=== PATIENT | male | born 1945 | race Caucasian/White ===

== ENCOUNTER → 2020-07-23 | Emergency (ER) | payer OTHER ==
[~2020-07-23] VITALS: Ht 167.6 cm; Wt 65.8 kg
== END | disposition left against medical advice (07) ==
LOC: ER 15:57
DX: N40.1 Benign prostatic hyperplasia with lower urinary tract symptoms (principal); R33.8 Other retention of urine; D47.3 Essential (hemorrhagic) thrombocythemia; N41.0 Acute prostatitis; Z03.818 Encounter for observation for suspected exposure to other biological agents ruled out

== ENCOUNTER 2020-08-03 07:39 | Emergency (ER) | payer OTHER ==
[~2020-08-03] VITALS: Ht 177.8 cm; Wt 65.8 kg
== END 2020-08-03 14:05 | disposition left against medical advice (07) ==
LOC: ER 07:39
DX: N40.1 Benign prostatic hyperplasia with lower urinary tract symptoms (principal); R33.8 Other retention of urine

== ENCOUNTER 2020-11-10 07:25 | Emergency (ER) | payer OTHER ==
[~2020-11-10] VITALS: Ht 152.4 cm; Wt 65.8 kg
== END 2020-11-10 09:17 | disposition home or self-care (01) ==
LOC: ER 07:25
DX: N40.1 Benign prostatic hyperplasia with lower urinary tract symptoms (principal); R33.8 Other retention of urine

== ENCOUNTER 2020-11-11 07:34 | Emergency (ER) | payer OTHER ==
[~2020-11-11] VITALS: Ht 177.8 cm; Wt 65.8 kg
[2020-11-12] MEDS ORDERED: TAMS0.4C (09:54)
== END 2020-11-11 09:25 | disposition home or self-care (01) ==
LOC: ER 07:34
DX: Z46.6 Encounter for fitting and adjustment of urinary device (principal)

== ENCOUNTER 2020-11-12 09:20 | Emergency (ER) | payer OTHER ==
[~2020-11-12] VITALS: Ht 177.8 cm; Wt 65.8 kg
[2020-11-12] MEDS ORDERED: TAMS0.4C (09:54)
== END 2020-11-12 13:28 | disposition home or self-care (01) ==
LOC: ER 09:20
DX: R33.8 Other retention of urine (principal)

== ENCOUNTER 2020-11-19 10:33 | Emergency (ER) | payer OTHER ==
[~2020-11-19] VITALS: Ht 177.8 cm; Wt 65.8 kg
[~2020-11-19 10:33] MED LIST: TAMS0.4C
== END 2020-11-19 11:44 | disposition home or self-care (01) ==
LOC: ER 10:33
DX: T83.098A Other mechanical complication of other urinary catheter, initial encounter (principal)

== ENCOUNTER 2020-11-30 18:58 | Emergency (ER) | payer OTHER ==
[~2020-11-30] VITALS: Ht 177.8 cm; Wt 65.8 kg
== END 2020-11-30 20:32 | disposition home or self-care (01) ==
LOC: ER 18:58
DX: T83.098A Other mechanical complication of other urinary catheter, initial encounter (principal)